=== PATIENT | male | born 1950 | race Caucasian/White ===

== ENCOUNTER 2020-08-19 19:27 | Emergency (ER) | payer MEDICARE, OTHER ==
[~2020-08-19 19:27] MED LIST: AUGMENTIN 875-1 EACH PO; BACTROBAN OINT22 GM EXT
== END 2020-08-19 22:17 | disposition home or self-care (01) ==
LOC: ER1 19:27
DX: S61.412A Laceration without foreign body of left hand, initial encounter (principal); W26.8XXA Contact with other sharp object(s), not elsewhere classified, initial encounter; Y92.009 Unspecified place in unspecified non-institutional (private) residence as the place of occurrence of the external cause
CPT/HCPCS: 12001; 90715; 99283

== ENCOUNTER → 2020-08-22 | Outpatient (CLI) | payer MEDICARE, OTHER | LOC: KOH-I 11:08 | DX: M25.511 Pain in right shoulder (principal); M25.531 Pain in right wrist; M25.532 Pain in left wrist; M79.641 Pain in right hand; M79.642 Pain in left hand; M19.042 Primary osteoarthritis, left hand; M19.041 Primary osteoarthritis, right hand; M19.032 Primary osteoarthritis, left wrist; M19.031 Primary osteoarthritis, right wrist; M19.011 Primary osteoarthritis, right shoulder | CPT/HCPCS: 73030; 73110; 73130 ==

== ENCOUNTER → 2021-12-06 | Outpatient (CLI) | payer MEDICARE, OTHER | LOC: KOH-I 09:16 | DX: M25.511 Pain in right shoulder (principal); M19.011 Primary osteoarthritis, right shoulder; M89.8X2 Other specified disorders of bone, upper arm | CPT/HCPCS: 73221 ==